=== PATIENT | female | born 1975 | race Two or more races ===

== ENCOUNTER 2020-02-19 11:45 | Inpatient (IN) | payer MEDICAID, OTHER ==
[~2020-02-19] VITALS: Ht 167.6 cm; Wt 138.1 kg
[2020-02-19] MEDS ORDERED: ASCORBIC ACID 500 MG TAB PO ONE (12:00)
[2020-02-19] MEDS ORDERED: ZINC SULFATE 220mg CAP or TAB PO ONE (12:00)
[2020-02-19] MEDS ORDERED: methylPREDNISolone SOD SUCC 125 MG/2 ML VL IV ONE (12:00)
[2020-02-19] MEDS ORDERED: AZITHROMYCIN 500MG/ 250ML 250 ML IV ONE (12:00)
[2020-02-19 13:12] LABS: Eosinophils # (auto) 0 10 ^3/uL (0-0.8); Hemoglobin 10.7 g/dL (12.2-16.2); Lymphocytes # (auto) 1.1 10 ^3/uL (0.4-5.4); Monocytes # (auto) 0.3 10 ^3/uL (0-1.3); Red Cell Distribution Width 18.3 % (11.8-14.3)
[2020-02-19 13:14] LABS: Basophils # (auto) 0 10 ^3/uL (0-0.2); Basophils % (auto) 0.3 % (0.0-2.0); Eosinophils % (auto) 0.1 % (0.0-7.0); Hematocrit 34.2 % (36.0-46.0); Lymphocytes % (auto) 10.8 % (10.0-50.0); Mean Corpuscular Hemoglobin 21.2 pg (28.0-32.0); Mean Corpuscular Hgb Conc. 31.3 g/dL (32.0-36.0); Mean Corpuscular Volume 67.6 fL (80.0-100.0); Monocytes % (auto) 2.9 % (0.0-12.0); Neutrophils # (auto) 8.7 10 ^3/uL (1.6-8.6); Neutrophils % (auto) 85.9 % (37.0-80.0); Platelet Count (auto) 313 10^3/uL (140-450); Red Blood Cells 5.07 10^6/uL (4.0-5.20); White Blood Cell 10.2 10^3/uL (4.4-10.8)
[2020-02-19 13:51] LABS: Albumin 2.9 g/dL (3.4-5.0); BUN/Creatinine Ratio 11.1; Calcium 7.7 mg/dL (8.5-10.1); Potassium 3.2 mmol/L (3.5-5.1)
[2020-02-19 14:06] LABS: Bilirubin, Total 0.3 mg/dL (0.2-1.0); CRP High Sensitivity 6.98 mg/dL (< 0.3); Total Protein 7.8 g/dL (6.4-8.2)
[2020-02-19] MEDS: ACETAMINOPHEN 325 MG TAB PO PRN (16:53)
[2020-02-19] MEDS ORDERED: POTASSIUM EFFERVESENT TAB 25 MEQ PO ONE (21:45)
[2020-02-19] MEDS: ALBUTEROL SULF HFA 90MCG INH 200DOSE IN SCH (22:00)
[2020-02-19] MEDS ORDERED: IOHEXOL 350 MG/ML 100ML IJ ONE (22:24)
[2020-02-20] VITALS (11 sets, daily range): BP systolic 111–133; BP diastolic 61–85
[2020-02-20 06:36] LABS: Basophils # (auto) 0 10 ^3/uL (0-0.2); Eosinophils # (auto) 0 10 ^3/uL (0-0.8); Lymphocytes # (auto) 0.9 10 ^3/uL (0.4-5.4); Monocytes # (auto) 0.3 10 ^3/uL (0-1.3); Nucleated Red Blood Cells % 0.1 %
[2020-02-20 06:39] LABS: Basophils % (auto) 0.2 % (0.0-2.0); Hematocrit 32.8 % (36.0-46.0); Hemoglobin 10.1 g/dL (12.2-16.2); Mean Corpuscular Hemoglobin 20.9 pg (28.0-32.0); Mean Corpuscular Hgb Conc. 30.9 g/dL (32.0-36.0); Mean Corpuscular Volume 67.6 fL (80.0-100.0); Monocytes % (auto) 5.2 % (0.0-12.0); Neutrophils # (auto) 5.4 10 ^3/uL (1.6-8.6); Neutrophils % (auto) 80.6 % (37.0-80.0); Platelet Count (auto) 344 10^3/uL (140-450); Red Blood Cells 4.86 10^6/uL (4.0-5.20); Red Cell Distribution Width 18.5 % (11.8-14.3); White Blood Cell 6.7 10^3/uL (4.4-10.8)
[2020-02-20 06:59] LABS: BUN/Creatinine Ratio 18.8; Calcium 8.1 mg/dL (8.5-10.1); Magnesium 2.7 mg/dL (1.6-2.6); Potassium 3.5 mmol/L (3.5-5.1)
[2020-02-20 07:08] LABS: CRP High Sensitivity 6.27 mg/dL (< 0.3)
[2020-02-20] MEDS: ALBUTEROL SULF HFA 90MCG INH 200DOSE IN SCH ×4 (09:42→22:08)
[2020-02-20] MEDS: CHOLECALCIFEROL (VITD3) 2,000 UNIT CAP PO SCH (09:51)
[2020-02-20] MEDS: levoFLOXacin 500MG 100 ML IV SCH (09:51)
[2020-02-20] MEDS: ASCORBIC ACID 500 MG TAB PO SCH (09:51)
[2020-02-20] MEDS: ZINC SULFATE 220mg CAP or TAB PO SCH (09:51)
[2020-02-20] MEDS: DexAMETHasone SOD PHOS 10MG/1ML VIAL INJ IV SCH (09:51)
[2020-02-20] MEDS ORDERED: REMDESIVIR PER PHARMACY IV SCH (10:30)
[2020-02-20] MEDS ORDERED: REMDESIVIR 200 MG in NS 210ml LOADING DOSE ADULT IV ONE ×3 (17:00→20:00)
[2020-02-21] MEDS: ACETAMINOPHEN 325 MG TAB PO PRN (04:46)
[2020-02-21 05:00] VITALS: BP 132/81
[2020-02-21 05:54] LABS: Hemoglobin 9.7 g/dL (12.2-16.2)
[2020-02-21 05:57] LABS: Hematocrit 31.9 % (36.0-46.0); Mean Corpuscular Hemoglobin 20.7 pg (28.0-32.0); Mean Corpuscular Hgb Conc. 30.3 g/dL (32.0-36.0); Mean Corpuscular Volume 68.3 fL (80.0-100.0); Platelet Count (auto) 374 10^3/uL (140-450); Red Blood Cells 4.67 10^6/uL (4.0-5.20); Red Cell Distribution Width 18.7 % (11.8-14.3); White Blood Cell 13.8 10^3/uL (4.4-10.8)
[2020-02-21 06:13] LABS: Calcium 8.1 mg/dL (8.5-10.1); Potassium 3.3 mmol/L (3.5-5.1)
[2020-02-21 06:25] LABS: BUN/Creatinine Ratio 22.7; CRP High Sensitivity 3.37 mg/dL (< 0.3)
[2020-02-21 06:30] LABS: Basophils % (manual) 0 (0.0-2.0); Blast Cells 0; Eosinophils % (manual) 0 (0-7); Metamyelocytes % 0; Myelocytes % 0; Promyelocytes % 0; Reactive Lymphocytes 0
[2020-02-21] MEDS: ALBUTEROL SULF HFA 90MCG INH 200DOSE IN SCH ×4 (07:00→22:09)
[2020-02-21 07:59] LABS: Band Neutrophils % (manual) 9; Lymphocytes % (manual) 15 (10.0-50.0); Monocytes % (manual) 2 (0-12)
[2020-02-21 09:00] VITALS: BP 115/65
[2020-02-21] MEDS: levoFLOXacin 500MG 100 ML IV SCH (09:05)
[2020-02-21] MEDS: ASCORBIC ACID 500 MG TAB PO SCH (09:05)
[2020-02-21] MEDS: ZINC SULFATE 220mg CAP or TAB PO SCH (09:05)
[2020-02-21] MEDS: DexAMETHasone SOD PHOS 10MG/1ML VIAL INJ IV SCH (09:05)
[2020-02-21] MEDS: CHOLECALCIFEROL (VITD3) 2,000 UNIT CAP PO SCH (09:06)
[2020-02-21 10:52] LABS: Albumin 2.5 g/dL (3.4-5.0)
[2020-02-21 10:55] LABS: Bilirubin, Direct 0.1 mg/dL (0-0.2); Bilirubin, Total 0.2 mg/dL (0.2-1.0); Total Protein 7.1 g/dL (6.4-8.2)
[2020-02-21 13:00] VITALS: BP 106/69
[2020-02-21 17:00] VITALS: BP 125/73
[2020-02-21] MEDS: REMDESIVIR 100mg in NS 230ml DAILYx4DAYS (NO VENT) IV SCH (17:00)
[2020-02-21 21:44] VITALS: BP 126/71
[2020-02-22] VITALS (7 sets, daily range): BP systolic 96–145; BP diastolic 40–82
[2020-02-22] MEDS: ALBUTEROL SULF HFA 90MCG INH 200DOSE IN SCH ×3 (07:24→23:07)
[2020-02-22] MEDS: DexAMETHasone SOD PHOS 10MG/1ML VIAL INJ IV SCH (09:15)
[2020-02-22] MEDS: levoFLOXacin 500MG 100 ML IV SCH (09:15)
[2020-02-22] MEDS: ZINC SULFATE 220mg CAP or TAB PO SCH (09:16)
[2020-02-22] MEDS: CHOLECALCIFEROL (VITD3) 2,000 UNIT CAP PO SCH (09:16)
[2020-02-22] MEDS: ASCORBIC ACID 500 MG TAB PO SCH (09:16)
[2020-02-22] MEDS: REMDESIVIR 100mg in NS 230ml DAILYx4DAYS (NO VENT) IV SCH (17:12)
[2020-02-23] VITALS (7 sets, daily range): BP systolic 120–140; BP diastolic 66–88
[2020-02-23] MEDS: ALBUTEROL SULF HFA 90MCG INH 200DOSE IN SCH ×3 (06:45→23:20)
[2020-02-23 07:53] LABS: Calcium 8.2 mg/dL (8.5-10.1); Potassium 3.8 mmol/L (3.5-5.1)
[2020-02-23 07:59] LABS: Albumin 2.4 g/dL (3.4-5.0); BUN/Creatinine Ratio 22.4; Bilirubin, Total 0.2 mg/dL (0.2-1.0); Total Protein 6.5 g/dL (6.4-8.2)
[2020-02-23] MEDS: levoFLOXacin 500MG 100 ML IV SCH (10:38)
[2020-02-23] MEDS: ZINC SULFATE 220mg CAP or TAB PO SCH (10:38)
[2020-02-23] MEDS: ASCORBIC ACID 500 MG TAB PO SCH (10:38)
[2020-02-23] MEDS: DexAMETHasone SOD PHOS 10MG/1ML VIAL INJ IV SCH (10:38)
[2020-02-23] MEDS: CHOLECALCIFEROL (VITD3) 2,000 UNIT CAP PO SCH (10:39)
[2020-02-23] MEDS ORDERED: IPRIH IN (13:15)
[2020-02-23] MEDS ORDERED: CHOL1CAP47 PO (13:15)
[2020-02-23] MEDS ORDERED: DEXA6TAB PO (13:15)
[2020-02-23] MEDS ORDERED: ALBUAER3 IN (13:15)
[2020-02-23] MEDS ORDERED: ASCO500T11 PO (13:15)
[2020-02-23] MEDS ORDERED: ZINC220T6 PO (13:15)
[2020-02-23] MEDS ORDERED: LEVO500T21 PO (13:15)
[2020-02-23] MEDS: REMDESIVIR 100mg in NS 230ml DAILYx4DAYS (NO VENT) IV SCH (16:32)
[2020-02-23] MEDS: PROMETHAZINE HCL 25 MG/ML 1ML IV PRN (22:19)
[2020-02-23] MEDS: ACETAMINOPHEN 325 MG TAB PO PRN (22:41)
[2020-02-24 05:00] VITALS: BP 128/71
[2020-02-24] MEDS: ALBUTEROL SULF HFA 90MCG INH 200DOSE IN SCH ×3 (06:36→21:56)
[2020-02-24 09:00] VITALS: BP 106/65
[2020-02-24] MEDS: DexAMETHasone SOD PHOS 10MG/1ML VIAL INJ IV SCH (10:37)
[2020-02-24] MEDS: levoFLOXacin 500MG 100 ML IV SCH (10:37)
[2020-02-24] MEDS: ASCORBIC ACID 500 MG TAB PO SCH (10:38)
[2020-02-24] MEDS: CHOLECALCIFEROL (VITD3) 2,000 UNIT CAP PO SCH (10:38)
[2020-02-24] MEDS: ZINC SULFATE 220mg CAP or TAB PO SCH (10:38)
[2020-02-24] MEDS: ACETAMINOPHEN 325 MG TAB PO PRN (11:00)
[2020-02-24] MEDS: PROMETHAZINE HCL 25 MG/ML 1ML IV PRN (11:00)
[2020-02-24 17:00] VITALS: BP 97/54
[2020-02-24] MEDS: REMDESIVIR 100mg in NS 230ml DAILYx4DAYS (NO VENT) IV SCH (17:35)
[2020-02-24 20:00] VITALS: BP 119/73
[2020-02-24 22:02] VITALS: BP 116/63
[2020-02-25 05:00] VITALS: BP 133/74
[2020-02-25] MEDS: ALBUTEROL SULF HFA 90MCG INH 200DOSE IN SCH ×3 (06:43→22:00)
[2020-02-25 09:00] VITALS: BP 129/71
[2020-02-25] MEDS: ASCORBIC ACID 500 MG TAB PO SCH (10:27)
[2020-02-25] MEDS: levoFLOXacin 500MG 100 ML IV SCH (10:27)
[2020-02-25] MEDS: CHOLECALCIFEROL (VITD3) 2,000 UNIT CAP PO SCH (10:27)
[2020-02-25] MEDS: DexAMETHasone SOD PHOS 10MG/1ML VIAL INJ IV SCH (10:27)
[2020-02-25] MEDS: ZINC SULFATE 220mg CAP or TAB PO SCH (10:27)
[2020-02-25] MEDS: ACETAMINOPHEN 325 MG TAB PO PRN (10:31)
[2020-02-25 13:00] VITALS: BP 106/63
[2020-02-25 17:00] VITALS: BP 119/68
[2020-02-25 22:00] VITALS: BP 100/57
[2020-02-26 03:56] VITALS: BP 100/57
[2020-02-26 05:00] VITALS: BP 91/33
[2020-02-26] MEDS: ALBUTEROL SULF HFA 90MCG INH 200DOSE IN SCH ×2 (07:48→14:58)
[2020-02-26 09:31] VITALS: BP 140/82
[2020-02-26] MEDS: DexAMETHasone SOD PHOS 10MG/1ML VIAL INJ IV SCH (11:24)
[2020-02-26] MEDS: ZINC SULFATE 220mg CAP or TAB PO SCH (11:24)
[2020-02-26] MEDS: levoFLOXacin 500MG 100 ML IV SCH (11:24)
[2020-02-26] MEDS: ASCORBIC ACID 500 MG TAB PO SCH (11:25)
[2020-02-26] MEDS: CHOLECALCIFEROL (VITD3) 2,000 UNIT CAP PO SCH (11:25)
[2020-02-26 13:02] VITALS: BP 125/74
[2020-02-26 16:42] VITALS: BP 110/59
== END 2020-02-26 20:55 | disposition home health service (06) | DRG 137 ==
LOC: ER 11:45 → EDBD 11:45 → TELE 11:46 → TELE-CENTR 02-20 10:47
PROVIDERS: ADMIT Internal Medicine; ATTEND Internal Medicine
PROC: XW033E5 Introduction of Remdesivir Anti-infective into Peripheral Vein, Percutaneous Approach, New Technology Group 5 (ICD-10-PCS; principal; 2020-02-20)
PROC: XW13325 Transfusion of Convalescent Plasma (Nonautologous) into Peripheral Vein, Percutaneous Approach, New Technology Group 5 (ICD-10-PCS; 2020-02-20)
DX: U07.1 COVID-19 (principal); J12.89 Other viral pneumonia; J96.01 Acute respiratory failure with hypoxia; D64.9 Anemia, unspecified; E66.01 Morbid (severe) obesity due to excess calories; Z68.42 Body mass index [BMI] 45.0-49.9, adult; I27.20 Pulmonary hypertension, unspecified; K76.0 Fatty (change of) liver, not elsewhere classified; Z83.3 Family history of diabetes mellitus; Z87.891 Personal history of nicotine dependence
CPT/HCPCS: 36415; 71045; 71275; 80048; 80053; 80076; 82728; 83605; 83615; 83735; 84702; 85007; 85025; 85027; 85379; 86141; 86850; 86900; 86901; 87040; 87426; 93970; 94640; 96365; 96375; G0378; J1100; J1956

== ENCOUNTER 2021-11-10 15:00 | Emergency (ER) | payer MEDICAID ==
[~2021-11-10] VITALS: Ht 162.6 cm; Wt 140.0 kg
[~2021-11-10 15:00] MED LIST: ALBUAER3 IN; ASCO500T11 PO; CHOL1CAP47 PO; DEXA6TAB PO; IPRIH IN; LEVO500T31 PO; ZINC220T6 PO
[2021-11-10 17:08] LABS: INR 0.97 (0.9-1.15); Partial Thromboplastin Time 24.9 sec (24.6-33.4)
[2021-11-10 18:57] LABS: Basophils # (auto) 0.1 10 ^3/uL (0-0.2); Eosinophils # (auto) 0 10 ^3/uL (0-0.8); Hemoglobin 10.1 g/dL (12.2-16.2); Lymphocytes # (auto) 1.3 10 ^3/uL (0.4-5.4); Nucleated Red Blood Cells % 0.1 %
[2021-11-10 18:59] LABS: Basophils % (auto) 0.7 % (0.0-2.0); Eosinophils % (auto) 0.4 % (0.0-7.0); Hematocrit 33.3 % (36.0-46.0); Lymphocytes % (auto) 17.3 % (10.0-50.0); Mean Corpuscular Hemoglobin 20.1 pg (28.0-32.0); Mean Corpuscular Hgb Conc. 30.2 g/dL (32.0-36.0); Mean Corpuscular Volume 66.6 fL (80.0-100.0); Monocytes # (auto) 0.6 10 ^3/uL (0-1.3); Monocytes % (auto) 7.5 % (0.0-12.0); Neutrophils # (auto) 5.8 10 ^3/uL (1.6-8.6); Neutrophils % (auto) 74.1 % (37.0-80.0); Red Blood Cells 5.01 10^6/uL (4.0-5.20); White Blood Cell 7.8 10^3/uL (4.4-10.8)
[2021-11-10 19:10] LABS: Red Cell Distribution Width 20.2 % (11.8-14.3)
[2021-11-10 21:52] VITALS: BP 114/75
== END 2021-11-10 21:52 | disposition home or self-care (01) ==
LOC: ER 15:00
DX: N93.9 Abnormal uterine and vaginal bleeding, unspecified (principal); D64.9 Anemia, unspecified; Z87.891 Personal history of nicotine dependence; Z79.2 Long term (current) use of antibiotics; Z79.899 Other long term (current) drug therapy
CPT/HCPCS: 36415; 76830; 76856; 84702; 85025; 85610; 85730; 86850; 86900; 86901